=== PATIENT | female | born 1955 | race Caucasian/White ===

== ENCOUNTER → 2016-06-20 | Outpatient (CLI) | payer BC | LOC: MC.RAD 14:35 | DX: Z12.31 Encounter for screening mammogram for malignant neoplasm of breast (principal); N63 Unspecified lump in breast ==

== ENCOUNTER → 2016-06-27 | Outpatient (CLI) | payer BC | LOC: MC.RAD 13:00 | DX: N63 Unspecified lump in breast (principal) ==

== ENCOUNTER → 2017-06-12 | Outpatient (CLI) | payer BC | LOC: COL.RAD 14:45 | DX: E04.2 Nontoxic multinodular goiter (principal) ==

== ENCOUNTER → 2017-07-01 | Outpatient (CLI) | payer BC | LOC: MC.RAD 06-23 15:00 | DX: Z12.31 Encounter for screening mammogram for malignant neoplasm of breast (principal) ==

== ENCOUNTER → 2018-09-03 | Outpatient (CLI) | payer BC | LOC: MC.RAD 15:24 | DX: Z12.31 Encounter for screening mammogram for malignant neoplasm of breast (principal) ==

== ENCOUNTER → 2019-11-09 | Outpatient (CLI) | payer BC | LOC: MC.RAD 10-19 15:45 | DX: Z12.31 Encounter for screening mammogram for malignant neoplasm of breast (principal) ==

== ENCOUNTER → 2020-09-26 | Outpatient (CLI) | payer BC | LOC: COL.RAD 13:52 | DX: R14.0 Abdominal distension (gaseous) (principal); Z90.710 Acquired absence of both cervix and uterus ==

== ENCOUNTER → 2020-12-05 | Outpatient (CLI) | payer BC | LOC: MC.RAD 14:29 | DX: Z12.31 Encounter for screening mammogram for malignant neoplasm of breast (principal) ==

== ENCOUNTER → 2021-12-11 | Outpatient (CLI) | payer BC | LOC: MC.RAD 14:45 | DX: Z12.31 Encounter for screening mammogram for malignant neoplasm of breast (principal) ==

== ENCOUNTER → 2023-11-13 | Outpatient (CLI) | payer MEDICARE | LOC: MC.RAD 14:00 | DX: Z12.31 Encounter for screening mammogram for malignant neoplasm of breast (principal) ==